=== PATIENT | female | born 1965 | race Caucasian/White ===

== ENCOUNTER 2019-12-28 11:15 | Day surgery (SDC) | payer MEDICAID ==
[~2019-12-28] VITALS: Ht 167.6 cm; Wt 84.5 kg
[~2019-12-28 11:15] MED LIST: SODIUM CHLORIDE 0.9% 1,000 ML ONE
[2019-12-28] MEDS ORDERED: PROPOFOL 1% 20 ML VIAL IVP ONE (11:16)
[2019-12-28] MEDS ORDERED: LIDOCAINE/PF 2% 5 ML SYRINGE IVP ONE (11:16)
[2019-12-28] MEDS ORDERED: SODIUM CHLORIDE 0.9% 1,000 ML IV ONE (11:30)
[2019-12-28] MEDS ORDERED: [UNRECOGNIZED DRUG - OTHER] PO (11:43)
[2019-12-28] MEDS ORDERED: METF-911 PO (11:43)
[2019-12-28] MEDS ORDERED: GLIP10 PO (11:43)
[2019-12-28] MEDS ORDERED: MULT1CAP32 PO (11:43)
[2019-12-28] MEDS ORDERED: ENAL20 PO (11:43)
[2019-12-28] MEDS ORDERED: [UNRECOGNIZED DRUG - OTHER] PO (11:44)
[2019-12-28 11:50] LABS: COVID AG,FIA SOURCE NASOPHARYNGEAL
[2019-12-28 12:21] LABS: GLUCOMETER DEV NAME(LOC) SDS.; GLUCOSE,POINT OF CARE 109 MG/DL (70-110)
== END 2019-12-28 14:30 | disposition home or self-care (01) ==
LOC: SURGERY 11:15
PROVIDERS: ATTEND Internal Medicine Gastroenterology
DX: K29.50 Unspecified chronic gastritis without bleeding (principal); K74.60 Unspecified cirrhosis of liver; K21.9 Gastro-esophageal reflux disease without esophagitis; E78.5 Hyperlipidemia, unspecified; I10 Essential (primary) hypertension; E11.9 Type 2 diabetes mellitus without complications; Z85.3 Personal history of malignant neoplasm of breast; Z98.890 Other specified postprocedural states
CPT/HCPCS: 43239; 82962; 87426; 88305; 88312; 88313; C1769; C9803; J2704; J3490; J7030

== ENCOUNTER 2020-01-15 10:51 | Day surgery (SDC) | payer MEDICAID ==
[2020-01-10 14:35] LABS: COVID AG,FIA SOURCE NASOPHARYNGEAL
[~2020-01-15] VITALS: Ht 167.6 cm; Wt 83.2 kg
[~2020-01-15 10:51] MED LIST changes: +AMLO-258 PO; +ENAL20 PO; +GLIP5 PO; +HYD25 PO; +LETR2.5 PO; +METF-911 PO; +MULT1CAP32 PO; +OMEP20 PO; +SODIUM CHLORIDE 0.9% 1,000 ML IV ONE
[2020-01-15] MEDS ORDERED: LIDOCAINE/PF 2% 5 ML VIAL IM ONE (10:52)
[2020-01-15] MEDS ORDERED: PROPOFOL 1% 20 ML VIAL IVP ONE (10:52)
[2020-01-15 11:41] LABS: GLUCOMETER DEV NAME(LOC) SDS.; GLUCOSE,POINT OF CARE 113 MG/DL (70-110)
== END 2020-01-15 14:35 | disposition home or self-care (01) ==
LOC: SURGERY 10:51
PROVIDERS: ATTEND Internal Medicine Gastroenterology
DX: Z12.11 Encounter for screening for malignant neoplasm of colon (principal); K63.5 Polyp of colon; D12.3 Benign neoplasm of transverse colon; D12.4 Benign neoplasm of descending colon; K64.8 Other hemorrhoids; K74.60 Unspecified cirrhosis of liver; K21.9 Gastro-esophageal reflux disease without esophagitis; E78.5 Hyperlipidemia, unspecified; I10 Essential (primary) hypertension; Z85.3 Personal history of malignant neoplasm of breast; E11.9 Type 2 diabetes mellitus without complications; Z79.84 Long term (current) use of oral hypoglycemic drugs; Z79.899 Other long term (current) drug therapy; Z20.828 Contact with and (suspected) exposure to other viral communicable diseases
CPT/HCPCS: 45385; 82962; 87426; 88305; C9803; J2704; J3490; J7030